=== PATIENT | male | born 1960 | race African-American/Black ===

== ENCOUNTER 2017-10-13 17:34 | Emergency (ER) | payer OTHER ==
[~2017-10-13] VITALS: Ht 180.3 cm; Wt 136.1 kg
[2017-10-13] MEDS ORDERED: ALBUTEROL/IPRATROPIUM 3 ML NEB ONE (17:48)
--- NOTE | 2017-10-13 17:48 | ER Report ---
History and Physical Time Seen By MD: 17:48 Hx. of Stated Complaint: PT BENITO WITH HX OF FLYING TO [place] , BEING AWAY FROM HIS OXYGEN FOR 1 WEEK. THEY ARE NOW DRIVING BACK TO [place] AND HE GOT SOB WHEN HE GOT TO [place] [facility] COMPLAINT: Shortness of breath HISTORY OF PRESENT ILLNESS: 56-year-old male patient presents to emergency room with complaint of shortness of breath. Patient states this been going on for approximately one week. Patient states that he flew from [place] to [facility] to visit family. He did not take any of his medication with him. Patient is typically on 2 L of oxygen, he did not take his oxygen with him. He states he is having some shortness of breath and [place] as well. His open is going to be able to get home and get back on his medication. Patient states that he was not able to do that. He denies any chest pain, nausea, vomiting or diarrhea. Patient states he has a history of a pneumothorax 3. He does have concerns about that. REVIEW OF SYSTEMS: Respiratory: As noted above Cardiovascular: No chest pain, no palpitations. Gastrointestinal: No vomiting, no abdominal pain. Musculoskeletal: No back pain. Allergies: Coded Allergies: Penicillins (Verified Allergy, Unknown, 10/13/17) carbamazepine (Verified Allergy, Unknown, 10/13/17) morphine (Verified Allergy, Unknown, 10/13/17) Home Meds Active Scripts Azithromycin 250 Mg Tab (AZITHROMYCIN 250 MG TAB) 250 Mg Tablet, 1 TAB PO QDAY for 4 Days, #4 TAB Prov:ALEX JAEGER [employer] 10/13/17 Reported Medications Furosemide (FUROSEMIDE) 20 Mg Tablet, 1 TAB PO Q8H, TAB 10/13/17 Phenytoin Sodium Extended (DILANTIN) 100 Mg Capsule, 100 MG PO BID, CAPSULE 10/13/17 Lisinopril (LISINOPRIL) 20 Mg Tablet, 20 MG PO QDAY, TAB 10/13/17 Prednisone (PREDNISONE) 20 Mg Tablet, 50 MG PO QDAY, TAB 10/13/17 Past Medical/Surgical History Patient has a past medical history of seizures, pneumothorax, asthma, COPD, depression. Patient denies any surgical history. Reviewed Nurses Notes: Yes Constitutional Vital Sign - Last 24 Hours 10/13/17 10/13/17 10/13/17 10/13/17 17:39 17:42 17:42 17:49 Temp 98.5 Pulse 90 90 95 Resp 24 20 20 B/P (MAP) 156/107 Pulse Ox 95 94 O2 Delivery Room Air Nasal Cannula O2 Flow Rate 2.0 10/13/17 10/13/17 10/13/17 10/13/17 17:51 18:00 18:30 18:45 Pulse 87 85 Resp 37 22 B/P (MAP) 131/85 (100) 118/87 (97) Pulse Ox 91 95 O2 Flow Rate 2.0 10/13/17 10/13/17 10/13/17 10/13/17 19:00 19:15 19:30 19:45 Pulse 76 71 78 75 Resp 18 20 24 B/P (MAP) 127/82 (97) 130/93 (105) Pulse Ox 95 97 96 96 Physical Exam General Appearance: The patient is alert, has no immediate need for airway protection and no current signs of toxicity. ENT: Tympanic membranes are pearly-joyce, auditory canals are patent, mucous membranes are moist. Respiratory: Chest is non tender, lungs are coarse in the right lower lobe to auscultation. Cardiac: regular rate and rhythm Gastrointestinal: Abdomen is soft and non tender, no masses, bowel sounds normal. Musculoskeletal: Neck: Neck is supple and non tender. Extremities have full range of motion and are non tender. Skin: No rashes or lesions. DIFFERENTIAL DIAGNOSIS: After history and physical exam differential diagnosis was considered for shortness of breath including but not limited to pulmonary infectious process, COPD, asthma, pulmonary embolus and congestive heart failure. Medical Decision Making Data Points Result Diagram: 10/13/17 1743 10/13/17 1743 Laboratory Hematology Test 10/13/17 17:43 Red Blood Count 5.35 M/uL (4.00-5.60) Mean Corpuscular Volume 90.4 fL (80.0-96.0) Mean Corpuscular Hemoglobin 30.1 pg (26.0-33.0) Mean Corpuscular Hemoglobin Concent 33.2 g/dL (32.0-36.0) Red Cell Distribution Width 13.4 % (11.5-14.5) Mean Platelet Volume 7.8 fL (7.2-11.1) Neutrophils (%) (Auto) 47.7 % (39.4-72.5) Lymphocytes (%) (Auto) 37.1 % (17.6-49.6) Monocytes (%) (Auto) 9.3 % (4.1-12.4) Eosinophils (%) (Auto) 5.3 % (0.4-6.7) Basophils (%) (Auto) 0.6 % (0.3-1.4) Nucleated RBC Relative Count (auto) 0.1 /100WBC Neutrophils # (Auto) 2.5 K/uL (2.0-7.4) Lymphocytes # (Auto) 1.9 K/uL (1.3-3.6) Monocytes # (Auto) 0.5 K/uL (0.3-1.0) Eosinophils # (Auto) 0.3 K/uL (0.0-0.5) Basophils # (Auto) 0.0 K/uL (0.0-0.1) Nucleated RBC Absolute Count (auto) 0.01 K/uL Sodium Level 139 mmol/L (137-145) Potassium Level 4.4 mmol/L (3.5-5.0) Chloride Level 106 mmol/L (98-107) Carbon Dioxide Level 25 mmol/L (22-30) Blood Urea Nitrogen 14 mg/dl (9-21) Creatinine 1.10 mg/dl (0.66-1.25) Glomerular Filtration Rate Calc > 60.0 Random Glucose 84 mg/dl (75-110) Calcium Level 9.1 mg/dl (8.4-10.2) Total Bilirubin 0.8 mg/dl (0.2-1.3) Aspartate Amino Transf (AST/SGOT) 59 U/L (0-35) Alanine Aminotransferase (ALT/SGPT) 93 U/L (0-56) Alkaline Phosphatase 84 U/L (0-126) Troponin I 0.028 ng/ml B-Type Natriuretic Peptide 62 pg/ml (0-100) Total Protein 7.2 gm/dl (6.3-8.2) Albumin 3.8 g/dl (3.5-5.0) Chemistry Test 10/13/17 17:43 White Blood Count 5.3 k/uL (4.5-11.0) Red Blood Count 5.35 M/uL (4.00-5.60) Hemoglobin 16.1 g/dL (14.0-18.0) Hematocrit 48.4 % (42.0-52.0) Mean Corpuscular Volume 90.4 fL (80.0-96.0) Mean Corpuscular Hemoglobin 30.1 pg (26.0-33.0) Mean Corpuscular Hemoglobin Concent 33.2 g/dL (32.0-36.0) Red Cell Distribution Width 13.4 % (11.5-14.5) Platelet Count 159 K/uL (150-450) Mean Platelet Volume 7.8 fL (7.2-11.1) Neutrophils (%) (Auto) 47.7 % (39.4-72.5) Lymphocytes (%) (Auto) 37.1 % (17.6-49.6) Monocytes (%) (Auto) 9.3 % (4.1-12.4) Eosinophils (%) (Auto) 5.3 % (0.4-6.7) Basophils (%) (Auto) 0.6 % (0.3-1.4) Nucleated RBC Relative Count (auto) 0.1 /100WBC Neutrophils # (Auto) 2.5 K/uL (2.0-7.4) Lymphocytes # (Auto) 1.9 K/uL (1.3-3.6) Monocytes # (Auto) 0.5 K/uL (0.3-1.0) Eosinophils # (Auto) 0.3 K/uL (0.0-0.5) Basophils # (Auto) 0.0 K/uL (0.0-0.1) Nucleated RBC Absolute Count (auto) 0.01 K/uL Glomerular Filtration Rate Calc > 60.0 Calcium Level 9.1 mg/dl (8.4-10.2) Total Bilirubin 0.8 mg/dl (0.2-1.3) Aspartate Amino Transf (AST/SGOT) 59 U/L (0-35) Alanine Aminotransferase (ALT/SGPT) 93 U/L (0-56) Alkaline Phosphatase 84 U/L (0-126) Troponin I 0.028 ng/ml B-Type Natriuretic Peptide 62 pg/ml (0-100) Total Protein 7.2 gm/dl (6.3-8.2) Albumin 3.8 g/dl (3.5-5.0) EKG/Imaging Imaging 2 VIEWS CHEST INDICATION: Respiratory distress. COMPARISON: None available FINDINGS: Cardiomediastinal silhouette and pulmonary vessels within normal limits. There is faint hazy peripheral opacity seen in the right lung from the mid to lower aspect without focal consolidation. The remaining lung newman are clear. There appears to be mild pleural thickening of the right pleura with possible small effusion. No left pleural effusion or pleural thickening. No indication of pneumothorax. No nodule. Upper abdomen is unremarkable. No acute bony abnormality. IMPRESSION: 1. There is a faint hazy peripheral opacities in the right lung with some right pleural thickening and possible right small pleural effusion. These are nonspecific this time and could be due to acute versus chronic changes. There are no previous exams for comparison. Suggest a short interval follow-up chest x -ray to reevaluate. Report Dictated By: Tk Reyes at 10/13/2017 6:31 PM Report E-Signed By: Tk Reyes at 10/13/2017 6:33 PM ED Course/Re-evaluation ED Course Patient was admitted to an exam room, history and physical were obtained. Differential diagnoses were considered. On examination patient was short of breath, he did have some rhonchi in the right lower lobe. Patient was placed on 2 L of oxygen was able to get his oxygen saturations up to 95%. A CBC, CMP, EKG , chest x-ray, troponin were done. The lab results were unremarkable, troponin did come back negative, however was at 0.028. Chest x-ray showed some haziness in the right upper lobe, EKG showed a normal sinus rhythm. I discussed the findings with the patient and his . I discussed with him that I was concerned about the troponin being 0.028. We discussed doing a repeat troponin. Patient verbalized agreement at that time. A repeat troponin was scheduled for 8 :00. At 8:00 the patient states that he would like to go ahead and go home. He preferred not to do the test. I discussed with patient that there is significant risk for not doing the test including but also damage to the heart muscle. Patient stated that he has pulmonology and cardiology that he sees at home in [place] and he would like to discuss ahead and get on the road. He states that he will stop if things worsen. I discussed waiting for oxygen company to bring him oxygen. Patient states he's feeling so much better at this time but he does not feel that he needs it. I discussed that this could cause damage to the heart muscle as well as cause the brain not to get enough oxygen. Patient agrees to sign out AGAINST MEDICAL ADVICE for skipping the repeat troponin and the oxygen. Patient did agree to sign out we will go ahead and discharge patient home at this time. Patient will be given an inhaler, and started on azithromycin for the haziness noted on the x-ray. He is to follow-up with his primary care provider as soon as possible. He is given strict instructions to go to emergency room if his condition worsens in the least. Patient verbalized understanding and agreement with plan. Decision to Disposition Date: Oct 13, 2017 Decision to Disposition Time: 20:08 Depart Departure Latest Vital Signs Vital Signs Date Time Temp Pulse Resp B/P (MAP) Pulse Ox O2 Delivery O2 Flow Rate FiO2 10/13/17 19:45 75 96 10/13/17 19:30 24 130/93 (105) 10/13/17 17:51 2.0 10/13/17 17:42 Nasal Cannula 10/13/17 17:39 98.5 Impression: Primary Impression: Pneumonia Additional Impression: COPD exacerbation Condition: Improved Disposition: HOME OR SELF-CARE New Scripts Azithromycin 250 Mg Tab (AZITHROMYCIN 250 MG TAB) 250 Mg Tablet 1 TAB PO QDAY for 4 Days, #4 TAB Prov: ALEX JAEGER 10/13/17 Patient Instructions: COPD (Chronic Obstructive Pulmonary Disease) (ED) Additional Instructions: Take the medications as prescribed. Follow up with your primary care provider early on Tuesday. Get plenty of rest. Return to an Emergency Room if condition worsens, worsening shortness of breath or chest pain. Increase fluid intake. Wear your oxygen when you return home. Problem Qualifiers Primary Impression: Pneumonia Pneumonia type: due to unspecified organism Laterality: right Lung location : upper lobe of lung Qualified Codes: J18.1 - Lobar pneumonia, unspecified organism ALEX JAEGER Oct 13, 2017 17:48
[2017-10-13] MEDS ORDERED: PHEN100C82 PO (17:50)
[2017-10-13] MEDS ORDERED: LISI20TA29 PO (17:50)
[2017-10-13] MEDS ORDERED: PRED20TA6 PO (17:50)
[2017-10-13] MEDS ORDERED: FURO-45 PO (17:50)
[2017-10-13] MEDS ORDERED: NS(*) 0.9% 500 ML BAG 500 ML IV ONE (17:53)
[2017-10-13] MEDS ORDERED: methylPREDNIS SUCC 125 MG/2ML IVP ONE (17:55)
[2017-10-13] MEDS ORDERED: ALBUTEROL/IPRATROPIUM 3 ML NEB NEB ONE (17:55)
--- NOTE | 2017-10-13 17:59 | EKG ---
FACILITY: [facility] - [place] PATIENT NAME: BERRY NESS : [id number] MR: [id number] V: [id number] EXAM DATE: ORDERING PHYSICIAN: ALEX JAEGER TECHNOLOGIST: CAROLA Leal Reason : RESPIRATORY Blood Pressure : / mmHG Vent. Rate : 089 BPM Atrial Rate : 089 BPM P-R Int : 178 ms QRS Dur : 082 ms QT Int : 380 ms P-R-T Axes : 027 -06 -12 degrees QTc Int : 462 ms Normal sinus rhythm Normal ECG No previous to compare Confirmed by YOLI FOSTER ([id number]) on 10/13/2017 7:19:30 PM Referred By: Confirmed By:YOLI FOSTER
[2017-10-13 18:02] LABS: PLATELET COUNT, AUTOMATED 159 K/uL (150-450)
[2017-10-13] MEDS ORDERED: APAP/HYDROCODONE 325/5 TAB PO ONE (18:15)
--- NOTE | 2017-10-13 18:37 | RADIOLOGY IMAGING REPORT ---
FACILITY: [facility] - [place] PATIENT NAME: Kilo Morillo : 1960 MR: [id number] V: [id number] EXAM DATE: ORDERING PHYSICIAN: ALEX JAEGER TECHNOLOGIST: Location: [facility] [place] Patient: Kilo Morillo : 1960 Visit/Account:[id number] Date of Sevice: 10/13/2017 2 VIEWS CHEST INDICATION: Respiratory distress. COMPARISON: None available FINDINGS: Cardiomediastinal silhouette and pulmonary vessels within normal limits. There is faint hazy peripheral opacity seen in the right lung from the mid to lower aspect without fo axel consolidation. The remaining lung newman are clear. There appears to be mild pleural thickening of the right pleura with possible small effusion. No left pleural effusion or pleural thickening. No indication of pneumothorax. No nodule. Upper abdomen is unremarkable. No acute bony abnormality. IMPRESSION: 1. There is a faint hazy peripheral opacities in the right lung with some right pleural thickening an d possible right small pleural effusion. These are nonspecific this time and could be due to acute ve rsus chronic changes. There are no previous exams for comparison. Suggest a short interval follow-up chest x-ray to reevaluate. Report Dictated By: Tk Reyes at 10/13/2017 6:31 PM Report E-Signed By: Tk Reyes at 10/13/2017 6:33 PM WSN:[id number]
[2017-10-13 19:30] VITALS: BP 130/93
[2017-10-13] MEDS ORDERED: AZIT-18 PO (20:06)
[2017-10-13] MEDS ORDERED: AZITHROMYCIN 250 MG TAB PO ONE (20:10)
[2017-10-13] MEDS ORDERED: predniSONE 20 MG TAB PO ONE (20:10)
[2017-10-13] MEDS ORDERED: ALBUTEROL SULFATE 90 MCG/ACT 8.5 GM HNH INH ONE (20:15)
== END 2017-10-13 20:16 | disposition home or self-care (01) ==
LOC: ER 17:52
DX: J18.1 Lobar pneumonia, unspecified organism (principal); J44.1 Chronic obstructive pulmonary disease with (acute) exacerbation
CPT/HCPCS: 71046; 83880; 84484; 85025; 93005; 94640; 96361; 96374; 99284; J2930; J7040; J7620; Q0144; 82040; 82247; 82310; 82374; 82435; 82565; 82947; 84075; 84132; 84155; 84295; 84450; 84460; 84520; J7512